=== PATIENT | female | born 1930 | race Caucasian/White ===

== ENCOUNTER 2017-08-09 11:55 | Inpatient (IN) | payer MEDICARE, OTHER ==
[~2017-08-09] VITALS: Ht 167.6 cm; Wt 56.8 kg
[2017-08-09] MEDS ORDERED: normal saline 1000ML IV soln IV ONE (12:05)
[2017-08-09 12:52] LABS: BASOPHILS % (AUTO) 0.3 % (0-1); EOSINOPHILS # (AUTO) 0.3 X10'3 (0-0.9); EOSINOPHILS % (AUTO) 3.1 % (0-6); HEMATOCRIT 45.5 % (35.0-45.0); HEMOGLOBIN 14.8 g/dl (12.0-16.0); LYMPHOCYTES # (AUTO) 1.9 X10'3 (1.1-4.8); LYMPHOCYTES % (AUTO) 22.5 % (21-51); MEAN CORPUSCULAR HEMOGLOBIN 32.5 PG (27.0-31.0); MEAN CORPUSCULAR HGB CONC 32.6 % (33.0-36.5); MEAN CORPUSCULAR VOLUME 99.6 FL (78-98); MEAN PLATELET VOLUME 7.9 FL (7.4-10.4); MONOCYTES # (AUTO) 0.2 X10'3 (0-0.9); MONOCYTES % (AUTO) 2.4 % (2-12); NEUTROPHILS # (AUTO) 6.1 X10'3 (1.8-7.7); NEUTROPHILS % (AUTO) 71.7 % (42-75); PLATELET COUNT 219 X10'3 (140-440); RED BLOOD COUNT 4.56 X10'6 (4.20-5.60); RED CELL DISTRIBUTION WIDTH 13.8 % (11.5-14.5); WHITE BLOOD COUNT 8.4 X10'3 (4.5-11.0)
[2017-08-09 13:01] LABS: INR 1.1 INR; PROTHROMBIN TIME 10.9 SECONDS (9.0-12.0)
[2017-08-09 13:09] LABS: ALANINE AMINOTRANSFERASE 21 U/L (12-78); ALBUMIN 3.6 G/DL (3.4-5.0); ALBUMIN/GLOBULIN RATIO 0.8 (1.1-1.5); ALKALINE PHOSPHATASE 121 IU/L (46-116); ANION GAP 15 (8-16); ASPARTATE AMINO TRANSFERASE 25 U/L (10-37); BLOOD UREA NITROGEN 41 MG/DL (7-18); BUN/CREATININE RATIO 16.9 (6.6-38.0); CALCIUM 9.7 MG/DL (8.5-10.1); CHLORIDE 105 MMOL/L (99-107); CREATININE 2.43 MG/DL (0.40-0.90); GLUCOSE 192 MG/DL (70-104); POTASSIUM 5.3 MMOL/L (3.5-5.1); SODIUM 138 MMOL/L (135-145); TOTAL CARBON DIOXIDE 18.2 MMOL/L (24-32); TOTAL PROTEIN 8.4 G/DL (6.4-8.2); eGFR 19 ML/MIN
[2017-08-09] MEDS ORDERED: CefTRIAXone 2gm/D5W 50ml ADVTG 50 ML IV ONE (13:20)
[2017-08-09] MEDS ORDERED: vancomycin/NS 1 GM ADD-VANTAGE 250 ML IV ONE (13:20)
[2017-08-09] MEDS ORDERED: normal saline 1000ml 1,000 ML IV SCH (14:34)
[2017-08-09] MEDS ORDERED: potassium Cl 40MEQ/NS 500ml 500 ML IV PRN ×2 (14:35)
[2017-08-09] MEDS ORDERED: magnesium 4gm in 100ml NS 100 ML IV PRN (14:35)
[2017-08-09] MEDS ORDERED: magnesium 2GM in 50ml NS 50 ML IV PRN (14:35)
[2017-08-09] MEDS ORDERED: mag hydrox/Alum hydrox/simeth 30ml oral suspension PO PRN (14:35)
[2017-08-09] MEDS ORDERED: acetaminophen 325mg tablet PO PRN (14:35)
[2017-08-09] MEDS ORDERED: ondansetron/PF 4mg/2ml inj IV PRN (14:35)
[2017-08-09] MEDS ORDERED: magnesium hydroxide 30ml (MOM) UD suspension PO PRN (14:35)
[2017-08-09 15:33] LABS: CLARITY,URINE CLOUDY (Clear); COLOR,URINE YELLOW (Yellow); GLUCOSE, URINE NEGATIVE (Neg); KETONES,URINE NEGATIVE (Neg); LEUKOCYTE ESTERASE ,URINE NEGATIVE (Neg); NITRITES, URINE NEGATIVE (Neg); OCCULT BLOOD,URINE MODERATE (Neg); PH,URINE 5.5 (4.8-8.0); PROTEIN,URINE 30 mg/dl (Neg); UA COLLECTION TYPE FOLEY CATH; UROBILINOGEN,URINE 0.2 E.U/dL (0.2-1.0)
[2017-08-09] MEDS ORDERED: normal saline 1000ML IV soln IVB ONE (15:40)
[2017-08-09 15:42] LABS: COARSE GRANULAR CAST 0-3 /LPF (NEGATIVE); FINE GRANULAR CAST 0-3 /LPF (NEGATIVE); HYALINE CASTS 0-3 /LPF (NEGATIVE); MUCUS STRANDS NONE SEEN /LPF (Neg); RENAL CELLS, URINE FEW /HPF; SQUAMOUS EPITHELIAL CELL,UR FEW /LPF (FEW); TRANSITIONAL EPI CELLS,URINE FEW /HPF
[2017-08-09 15:43] LABS: BACTERIA,URINE NONE SEEN /HPF (Neg); RBC,URINE 0-2 /HPF (0-2); WBC,URINE 0-4 /HPF (0-4)
[2017-08-09 15:44] LABS: AMORPHOUS URATES 1+
[2017-08-09] MEDS ORDERED: NO HOME MEDS (16:14)
[2017-08-09 16:31] LABS: ABG BASE EXCESS -15.6 mmol/L (-2.0-3.0); ABG HCO3 12.4 mmol/L (22.0-26.0); ABG OXYGEN SATURATION 93.8 % (95-98); ABG PCO2 (T) 36.8 mmHg (32.0-45.0); ABG PH (T) 7.147 (7.350-7.450); ABG PO2 (T) 85.2 mmHg (83-108); FCOHb 0.4 % (0.5-1.5); FMetHb 0.1 % (0.3-1.12); FO2Hb 93.3 % (94-100); TOTAL HEMOGLOBIN 13.9 G/dl (12.0-16.0)
[2017-08-09] MEDS ORDERED: heparin 10,000 units/1 ML INJ IV ONE (17:25)
[2017-08-09 18:21] LABS: PARTIAL THROMBOPLASTIN TIME 28 SECONDS (22-32)
[2017-08-09] MEDS ORDERED: LORazepam 2 mg/ml vial IV PRN (19:25)
[2017-08-09] MEDS ORDERED: LORazepam 0.5 MG tablet PO PRN (19:25)
[2017-08-09] MEDS ORDERED: atropine sulfate 1% ophthalmic drops SL PRN (19:25)
[2017-08-09] MEDS ORDERED: enoxaparin 40mg/0.4ml syringe SQ SCH (20:00)
[2017-08-09 21:30] VITALS: BP 138/74
[2017-08-10] MEDS ORDERED: VANCOMYCIN LEVEL IV SCH (03:00)
[2017-08-10] MEDS ORDERED: LACTOBACILLUS RHAMNOSUS GG 15 billion unit sprinkle caps PO SCH (07:30)
[2017-08-10] MEDS ORDERED: vancomycin/NS 1 GM ADD-VANTAGE 250 ML X 1 DOSE IV PRN (08:00)
[2017-08-10] MEDS ORDERED: cefTRIAXone 1g/NS 100ml IVPB 100 ML IV SCH (08:00)
[2017-08-10] MEDS ORDERED: K and/or MAG REPLACEMENT MC SCH (08:00)
[2017-08-10 08:36] VITALS: BP 134/73
[2017-08-10] MEDS: morphine 10mg/0.5ml (conc. morphine) oral syringe PO PRN ×2 (10:37→16:48)
[2017-08-10 19:15] VITALS: BP 97/48
== END 2017-08-11 01:00 | disposition expired | DRG 871 ==
LOC: ER 11:55 → ED HOLD 14:34 → EDBEDREQSVC 19:50 → EDBEDREQTM 21:06 → SUR 3N 21:25
PROVIDERS: ADMIT Family Medicine; ATTEND Family Medicine
DX: A41.9 Sepsis, unspecified organism (principal); J96.90 Respiratory failure, unspecified, unspecified whether with hypoxia or hypercapnia; N17.0 Acute kidney failure with tubular necrosis; G93.40 Encephalopathy, unspecified; K51.90 Ulcerative colitis, unspecified, without complications; L97.829 Non-pressure chronic ulcer of other part of left lower leg with unspecified severity; L97.819 Non-pressure chronic ulcer of other part of right lower leg with unspecified severity; E87.5 Hyperkalemia; I48.91 Unspecified atrial fibrillation; R65.20 Severe sepsis without septic shock; N18.3 Chronic kidney disease, stage 3 (moderate); I73.9 Peripheral vascular disease, unspecified; Z96.649 Presence of unspecified artificial hip joint; Z51.5 Encounter for palliative care; Z93.3 Colostomy status; Z88.2 Allergy status to sulfonamides; Z91.14 Patient's other noncompliance with medication regimen; Z86.718 Personal history of other venous thrombosis and embolism
CPT/HCPCS: 36415; 36600; 51702; 70450; 80053; 81001; 82803; 83605; 84145; 85018; 85025; 85610; 85730; 87040; 87070; 87077; 93005; 93925; 93970; 96374; 99291; 99292; A4315; A4353; A6213; A6250; J0696; J1644; J2060; J2270; J3370; J7030